=== PATIENT | female | born 1975 | race Caucasian/White ===

== ENCOUNTER 2018-03-10 15:04 | Emergency (ER) | payer MEDICAID, SELFPAY ==
[2018-03-10 15:06] VITALS: BP 127/76; PULSE 87; RESP 18; TEMP 36.6; O2SAT 97; BMI 39.2
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
[2018-03-10] MEDS: HYDROcodone Bitartrate/Apap 5/325 Tablet PO (15:21)
[2018-03-10 15:50] VITALS: PULSE 110; RESP 18; O2SAT 100
== END 2018-03-10 15:51 | disposition home or self-care (01) ==
PROVIDERS: Emergency Provider Emergency Medicine; Family Provider Student in an Organized Health Care Education/Training Program; PCP Family Medicine
DX: S20.219A Contusion of unspecified front wall of thorax, initial encounter (principal); V89.2XXA Person injured in unspecified motor-vehicle accident, traffic, initial encounter; Y93.9 Activity, unspecified; Y92.9 Unspecified place or not applicable; E66.9 Obesity, unspecified; E11.9 Type 2 diabetes mellitus without complications; Z79.84 Long term (current) use of oral hypoglycemic drugs
CPT/HCPCS: 71046; 99284

== ENCOUNTER 2018-03-12 20:45 | Emergency (ER) | payer MEDICAID, SELFPAY ==
[2018-03-12 20:46] VITALS: BP 110/73; PULSE 107; RESP 16; TEMP 36.7; O2SAT 99; BMI 38.9
--- NOTE | 2018-03-12 21:04 | ED.DCSUM_ITS ---
- ER Visit Summary Date of Service: 03/12/18 Chief Complaint: Wound bleeding History of Present Illness: The patient is a [address] Iglesias and Dr. Olivo. She reports that she had an I&D 2 days ago. She had a waterproof dressing placed. She states that she was taking a shower tonight and got out of the shower to dry off and touch the area and there was blood. She complains of a sharp pain 710 at worst and 5-10 currently. Is worsened by movement relieved by rest. Physical Examination: Vitals: Stable. Afebrile. General: Well-nourished and well-developed. Head: Normocephalic atraumatic. Neck: Supple, no lymphadenopathy. No JVD. Nontender. Cardiovascular: Regular rate and rhythm. No murmurs. Respiratory: No respiratory distress. Clear to auscultation bilaterally. Abdominal: Soft, nontender, nondistended, normal bowel sounds. No guarding, rebound, or peritoneal signs. Back: Nontender. Extremities: 2 cm incision right medial thigh with a packing in place. The superior portion of the waterproof dressing is not adherent. Dressing is removed. There is no bleeding. There is no erythema or induration. The packing is in place. Skin: Normal color, no rash. Neurologic: Alert and oriented ?3. Cranial nerves II through XII are intact. Normal strength and sensation. Psych: Normal affect. Emergency Department Course and Treatment: Patient had a new dressing placed. She is resting comfortably. Treatment Plan: Patient will be discharged with instructions to follow-up with Dr. Iglesias tomorrow as previously scheduled. Disposition: To home in improved and stable condition. Impression: 1. 2 days status post I&D right thigh. This note was generated with [employer] dictation software. It may contain incorrect words, spelling, and punctuation that were not noted in review of the chart prior to signing ED Disposition - Plan for ED Patient: Disposition: Home or Assisted Living Chief Complaint: Wound Check Instructions: ED Wound Check Post Op Bleeding Referrals: Greta Iglesias MD [STAFF PHYSICIAN] - Keep [facility] appointment
[2018-03-12 21:13] VITALS: RESP 16
== END 2018-03-12 21:22 | disposition home or self-care (01) ==
LOC: ED 21:18
PROVIDERS: Emergency Provider Emergency Medicine; Family Provider Student in an Organized Health Care Education/Training Program; PCP Family Medicine
DX: Z48.01 Encounter for change or removal of surgical wound dressing (principal); J45.909 Unspecified asthma, uncomplicated; E11.9 Type 2 diabetes mellitus without complications; Z90.49 Acquired absence of other specified parts of digestive tract; Z79.84 Long term (current) use of oral hypoglycemic drugs; Z79.899 Other long term (current) drug therapy; F17.200 Nicotine dependence, unspecified, uncomplicated
CPT/HCPCS: 99283

== ENCOUNTER → 2025-03-14 | Outpatient (CLI) | payer MEDICAID, SELFPAY ==
[2025-03-14 17:25] LABS: Hematocrit 43.2 % (37-47); Hemoglobin 14.7 g/dL (12.0-15.0); Immature Granulocytes Count 0.030 X10^3/uL (0.0-0.0); Mean Corp Hgb Conc 34.0 g/dL (32-36); Mean Corpuscular Volume 83.7 fL (81-99); Mean Platelet Vol. 10.3 fl (6.2-12.0); NRBC Flagged by Analyzer 0 % (0-5); Platelet Count 215 K/mm3 (150-450); RBC Distribution Width CV 13.9 % (11.6-14.6); RBC Distribution Width SD 42.4 fl (35.1-43.9); Red Blood Count 5.16 M/mm3 (4.2-5.4); White Blood Count 9.3 K/mm3 (4.4-11.0)
[2025-03-14 18:05] LABS: Creatinine, Urine (random) 88.10 mg/dL (28.00-217.00); Protein, Urine (Random) 16.6 mg/dL (0.0-12.0); Protein:Creat Ratio 188 mg/g CRE (0-200)
[2025-03-14 18:23] LABS: AST(SGOT) 58 U/L (<=31); Alanine Aminotransfer ALT/SGPT 44 U/L (<=34); Albumin, Serum 4.5 g/dL (3.5-5.0); Alkaline Phosphatase 129 U/L (35-104); Anion Gap 14 (5-15); BUN 12 mg/dL (4-19); BUN/Creat Ratio 16.1 RATIO (10-20); Calcium,Total 9.7 mg/dL (7.6-11.0); Carbon Dioxide 19.6 mmol/L (21.0-32.0); Chloride 98 mmol/L (98-108); Cholesterol 199 mg/dL (<=200); Globulin 3.3 g/dL (2.2-4.2); Glucose 361 mg/dL (70-99); Low Density Lipoprotein Calc. 118 mg/dL; Potassium 4.2 mmol/L (3.3-5.1); Triglycerides 246 mg/dL; Very Low Density Lipoprotein 49 mg/dL (5-40); cholesterol:hdl ratio screen 6.16
== END | disposition home or self-care (01) ==
LOC: LAB 16:56
DX: E11.9 Type 2 diabetes mellitus without complications (principal); E78.5 Hyperlipidemia, unspecified
CPT/HCPCS: 36415; 80053; 80061; 82570; 84156; 84443; 85025

== ENCOUNTER → 2025-07-08 | Outpatient (CLI) | payer MEDICAID, SELFPAY ==
[2025-07-08 16:29] LABS: Mucous, Urine 0 SEEN /hpf (<or=2+); Red Blood Cells-Urine 0 SEEN /hpf (0-5)
[2025-07-08 17:09] LABS: Color, Urine Straw (Yellow); Glucose, Dipstick 1000 mg/dl (Normal); Ketone-Dipstick Negative (Negative); Leukocyte Esterase-Dipstick 25 /ul (Negative); Nitrite-Dipstick Negative (Negative); Occult Blood-Urine 10 /ul (Negative); Protein-Dipstick Negative (Negative); Specific Gravity, Urine 1.010 (1.002-1.030); Urine Bilirubin Dipstick Negative (Negative)
[2025-07-08 17:34] LABS: Squamous Epithelial Cells - UA 5-10 SEEN /hpf (5-10)
== END | disposition home or self-care (01) ==
LOC: VSLAB 16:26
DX: E11.9 Type 2 diabetes mellitus without complications (principal); R19.7 Diarrhea, unspecified
CPT/HCPCS: 81001; 87086